=== PATIENT | female | born 1990 | race Caucasian/White ===

== ENCOUNTER 2020-03-27 14:43 | Inpatient (IN) ==
[2020-03-27] MEDS ORDERED: OXYTOCIN 30 UNITS/500 ML BAG IV PRN ×2 (14:59→20:09)
--- NOTE | 2020-03-27 15:05 | History & Physical Report ---
Date of Service March 27, 2020 Assessment & Plan (1) Uterine contractions at greater than 20 weeks of gestation: 30 yo at 40 wks, ctxs since strip of membranes this morning with cervical change VSS Afebrile Desires epidural FHR reassuring GBS negative Plan to admit, monitor, epidural then AROM and anticipate History of Present Illness Primary Care Provider: NO PCP Patient is a 30 yo at 40 wks who was in office this morning and her cervix wa 4 cm and swiped membranes She has been feeling ctxs q 3-4 min for the last 4 hours No LOF Light VB since VE +FM's Her has been uncomplicated GBS negative Allergies Allergy/AdvReac Type Severity Reaction Status Date / Time No Known Drug Allergies Allergy Verified 06/13/19 08:39 Home Medications Home Medications Medication Instructions Recorded Confirmed Type clonazepam 2 mg tablet PO tab 06/13/19 06/13/19 History naproxen sodium 550 mg tablet PO .TAKE 1 TABLET BY MURIEL #30 tab 06/13/19 06/13/19 History zolpidem 5 mg tablet PO tab 06/13/19 06/13/19 History Patient History Medical History ASCUS with positive high risk HPV 05/06/14 History of acne vulgaris History of Clostridium difficile colitis History of viral warts Surgical History Hx of colonoscopy Family History Father Hypertension Social History Preferred Language: Hungarian Beliefs That Will Affect Care: None marital status: Current Living Situation: Spouse and Family Current Living Situation Comment: two children Smoking Status: Never smoker Hx Alcohol Use: No Hx Substance Use: No OB History 2 FT LOCAL [employer] History No h/o STD's, no h/o HSV Review of Systems All systems reviewed & are unremarkable except as noted in HPI & below Physical Exam Constitutional: WD/WN, vitals as above well developed and well nourished Gastrointestinal (Abdomen): normal bowel sounds, soft, nontender, no hepatosplenomegaly (GRAVID) Genitourinary: normal external appearance OB Exam Abdomen: + vertex Manual OB Exam: + cervical dilation 5 cm, + cervical effacement 70% and + station -2 OB Exam Monitor Tracing: + external uterine monitor used, + category I and + normal FHT variability Results & Data Vital Signs (Past 12 Hours) Vital Signs Pulse BP 03/27/20 14:54 78 119/70
[2020-03-27 15:28] LABS: Hematocrit (blood only) 34.5 % (37-47); Hemoglobin 12.3 g/dL (12.0-16.0); Mean Corpuscular Hemoglobin 32.2 pg (25-34); Mean Corpuscular Volume 90.3 fL (80-100); Mean Platelet Volume 10.6 fL (7.4-10.4); Platelet Count 186 K/uL (130-400); RDW Coefficient of Variation 11.8 % (11.5-14.5); RDW Standard Deviation 38.5 fL (36.4-46.3); Red Blood Count 3.82 M/uL (4.2-5.4); White Blood Count 13.13 K/uL (4.8-10.8)
[2020-03-27 15:38] LABS: Mean Corpuscular Hgb Conc 35.7 g/dL (32-36)
[2020-03-27] MEDS: LACTATED RINGER'S 1,000 ML IV PRN ×2 (15:45→18:32)
[2020-03-27] MEDS ORDERED: ePHEDrine sulfate 50 MG/ML AMP ONE (16:13)
[2020-03-27] MEDS ORDERED: fentaNYL citrate 100 MCG/2 ML VIAL ONE (16:13)
[2020-03-27] MEDS ORDERED: BUPIVACAINE 0.25% 30 ML VIAL ONE (16:13)
[2020-03-27] MEDS ORDERED: fentaNYL 2MCG/ML ROPIV 1.25MG/ML 100 ML BAG EPI ONE (16:14)
[2020-03-27] MEDS ORDERED: ONDANSETRON INJ 2 MG/ML 2 ML VIAL IV PRN (16:52)
[2020-03-27] MEDS ORDERED: NALOXONE HCL 1 MG in SODIUM CHLORIDE 0.9% 1000ML 1,000 ML IV PRN (16:52)
[2020-03-27] MEDS ORDERED: ATROPINE SULFATE 0.1 MG/ML 10ML SYR IV PRN (16:52)
[2020-03-27] MEDS ORDERED: fentaNYL 2MCG/ML ROPIV 1.25MG/ML 100 ML BAG EPI PRN (16:52)
[2020-03-27] MEDS ORDERED: DiphenhydrAMINE HCL 50 MG/ML VIAL IV PRN (16:52)
[2020-03-27] MEDS ORDERED: NALOXONE HCL 0.4 MG/1 ML VIAL/CARP IV PRN (16:52)
[2020-03-27] MEDS ORDERED: ePHEDrine sulfate 50 MG/ML AMP IV PRN ×2 (16:52)
--- NOTE | 2020-03-27 16:54 | Anesthesiology Consultation ---
Date of Service March 27, 2020 Covid 19 negative on 03/19/20 Assessment & Plan Chart Review Chart Review: Patient NOT seen in Pre Admission Testing and Acceptable Risk for Labor Epidural Consults Requested none ASA ASA2 Proposed Anesthesia Anesthesia Type: Labor Epidural and CSE Risk / Benefits Reviewed With: PT / POA / Parent / Guardian, Accepts Plan and Informed Consent Obtained History Height/Weight Height: 5 ft 4 in Weight: 72.121 kg Allergies Allergy/AdvReac Type Severity Reaction Status Date / Time No Known Drug Allergies Allergy Verified 06/13/19 08:39 Medications Home Medications Medication Instructions Recorded Confirmed Last Taken vit-iron fum-folic ac 1 tab PO DAILY 03/27/20 03/27/20 Unknown [ Vitamin] Active Medications Generic Name Dose Route Start Last Admin Trade Name Freq PRN Reason Stop Dose Admin Lactated Ringer's 1,000 mls @ 150 mls/hr 03/27/20 14:59 03/27/20 16:34 Lr IV 03/29/20 14:58 150 mls/hr .[id number] PRN Infusion L&D Protocol Protocol NPO Date Last Intake of Fluids: 03/27/20 Time Last Intake of Fluids: 15:00 Date Last Intake of Solids: 03/27/20 Time Last Intake of Solids: 09:30 Past Medical History Medical History ASCUS with positive high risk HPV 05/06/14 History of acne vulgaris History of Clostridium difficile colitis History of viral warts Exercise / Class Metabolic Activity II 4-5 Yardwork/Stairs/Walk up hill Past Family History Family History Father Hypertension Past Surgical History Surgical History Hx of colonoscopy Past Anesthesia History No Hx of Anesthesia Complications and No Family Hx of Anesthesia Complications History of PONV No Hx of PONV and No Hx of Motion Sickness Social History Smoking Status: Never smoker Hx Alcohol Use: No Hx Substance Use: No substance use type: does not use Review of Systems no chest pain or sob Physical Exam Vital Signs Last Vital Signs Temp 37.3 C 03/27/20 14:57 Pulse 69 03/27/20 16:51 Resp 20 03/27/20 14:57 BP 119/70 03/27/20 14:57 Pulse Ox 98 03/27/20 16:51 ENMT Mouth: no TMJ abnormality Thyromental Distance: > or= 3.5 Finger Breadths Mallampati Class: II Neck normal visual inspection Respiratory normal respiratory effort Auscultation: lungs clear to auscultation bilaterally Cardiovascular Rate/Rhythm: regular rate and regular rhythm Musculoskeletal Spine: normal cervical ROM Neurologic moves all extremities Psychiatric Orientation: alert and oriented x 3 Testing Laboratory Results 03/27/20 15:19
--- NOTE | 2020-03-27 17:46 | Obstetrical Progress Note ---
Date of Service March 27, 2020 Assessment & Plan Admission and Anticipated Discharge Date Admission Date: March 27, 2020 Subjective Patient is reevaluated She is comfortable, received epidural for pain VE; 5-6 cm/ 70%/ -1, AROM'ed clear fluid FHR categ I Continue to monitor Anticipate Results & Data ([facility]) Vital Signs (Past 12 Hours) Vital Signs Temp Pulse Resp BP Pulse Ox 03/27/20 17:43 59 L 100 03/27/20 17:38 59 L 100 03/27/20 17:33 64 99 03/27/20 17:28 65 99 03/27/20 17:27 55 L 101/58 L 03/27/20 17:24 74 96/55 L 03/27/20 17:23 72 98 03/27/20 17:18 63 100 03/27/20 17:17 76 105/58 L 03/27/20 17:13 70 100 03/27/20 17:11 74 102/57 L 03/27/20 17:09 68 101/60 03/27/20 17:08 70 105/64 100 03/27/20 17:03 72 100 03/27/20 16:58 76 100 03/27/20 16:51 69 98 03/27/20 16:46 70 98 03/27/20 16:41 71 98 03/27/20 16:36 71 98 03/27/20 16:31 65 99 03/27/20 14:57 37.3 C 78 20 119/70 03/27/20 14:54 78 119/70
[2020-03-27] MEDS ORDERED: DIPHTHERIA/TETANUS/PERTUSSIS 0.5 ML SYR/VIAL IM ONE (20:09)
[2020-03-27] MEDS ORDERED: bisacodyL 10 MG SUPP PR PRN (20:09)
[2020-03-27] MEDS ORDERED: SUPERCREAM 0.870% 15 GM JAR EXT PRN (20:09)
[2020-03-27] MEDS ORDERED: MEASLES, MUMPS & RUBELLA VIRUS VIAL SQ ONE (20:09)
[2020-03-27] MEDS ORDERED: miSOPROStoL 200 MCG TAB PR ONE (20:09)
[2020-03-27] MEDS ORDERED: BENZOCAINE 20% AER SPR 82.5 GM CAN EXT PRN (20:09)
[2020-03-27] MEDS ORDERED: HYDROCORTISONE ACETATE 25 MG SUPP PR PRN (20:09)
--- NOTE | 2020-03-27 20:53 | Anesthesiology Progress Note ---
Date of Service March 27, 2020 Anesthesia Post Procedure Vital Signs Vital Signs: Temp Pulse Resp BP Pulse Ox 03/27/20 20:47 77 100/65 03/27/20 20:32 66 102/62 03/27/20 20:17 71 103/64 03/27/20 20:03 73 110/57 L 03/27/20 19:58 71 99 03/27/20 19:53 74 99 03/27/20 19:48 86 100 03/27/20 19:45 103 H 87 L 03/27/20 19:43 99 H 100 03/27/20 19:38 96 H 100 03/27/20 19:34 74 90 03/27/20 19:33 76 134/64 100 03/27/20 19:28 73 100 03/27/20 19:27 75 89 L 03/27/20 19:23 72 100 03/27/20 19:18 81 100 03/27/20 19:16 89 91 03/27/20 19:13 84 99 03/27/20 19:08 78 100 03/27/20 19:03 71 112/63 100 03/27/20 18:58 69 100 03/27/20 18:53 64 99 03/27/20 18:48 58 L 98 03/27/20 18:47 55 L 95/53 L 03/27/20 18:43 68 99 03/27/20 18:38 69 100 03/27/20 18:33 65 99 03/27/20 18:32 61 16 103/62 03/27/20 18:28 78 100 03/27/20 18:23 76 99 03/27/20 18:18 63 98 03/27/20 18:17 76 100/63 03/27/20 18:13 83 100 03/27/20 18:08 65 99 03/27/20 18:04 57 L 110/64 03/27/20 18:03 64 99 03/27/20 17:58 70 98 03/27/20 17:53 64 99 03/27/20 17:48 60 108/65 99 03/27/20 17:43 59 L 100 03/27/20 17:38 59 L 100 03/27/20 17:33 64 99 03/27/20 17:28 65 99 03/27/20 17:27 55 L 101/58 L 03/27/20 17:24 74 96/55 L 03/27/20 17:23 72 98 03/27/20 17:18 63 100 03/27/20 17:17 76 105/58 L 03/27/20 17:13 70 100 03/27/20 17:11 74 102/57 L 03/27/20 17:09 68 101/60 03/27/20 17:08 70 105/64 100 03/27/20 17:03 72 100 03/27/20 16:58 76 100 03/27/20 16:51 69 98 03/27/20 16:46 70 98 03/27/20 16:41 71 98 03/27/20 16:36 71 98 03/27/20 16:31 65 99 03/27/20 14:57 37.3 C 78 20 119/70 03/27/20 14:54 78 119/70 Pain Intensity Right Lower Abdomen: Pain Intensity: 2 Transfer of Care Handoff Completed per policy Notes Mental Status: alert / awake / arousable Patient Amnestic to Procedure: Yes Nausea / Vomiting: adequately controlled Pain: adequately controlled Airway Patency, RR, SpO2: stable & adequate BP & HR: stable & adequate Hydration State: stable & adequate Anesthetic Complications: no major complications apparent and Pt Satisfied with anesthetic care
--- NOTE | 2020-03-27 20:54 | Anesthesia Procedure Note ---
Date of Service March 27, 2020 Anesthesia Post Epidural Note Vital Signs Vital Signs: Temp Pulse Resp BP Pulse Ox 37.3 C 77 16 100/65 99 03/27/20 14:57 03/27/20 20:47 03/27/20 18:32 03/27/20 20:47 03/27/20 19:58 Pain Intensity Right Lower Abdomen: Pain Intensity: 2 Notes Mental Status: alert / awake / arousable and participated in evaluation Nausea / Vomiting: adequately controlled Pain: adequately controlled Airway Patency, RR, SpO2: stable & adequate BP & HR: stable & adequate Hydration State: stable & adequate Neuraxial Anesthesia: was administered and sensory block is resolving Anesthetic Complications: no major complications apparent and Pt Satisfied with anesthetic care Epidural: Removed without complications and With tip intact
--- NOTE | 2020-03-27 21:25 | Delivery Summary ---
DATE OF OPERATION: 03/27/2020 TIME OF DELIVERY OF BABY: 1946 p.m. DETAILS OF DELIVERY: The patient was found to be fully dilated and desired to push. She pushed for about 25 minutes and delivered the head without difficulty in occiput posterior position. Baby's face is up towards anterior. The shoulders were delivered with minimal traction. Baby was handed to the mother where mouth and nose were suctioned. Cord was clamped x2 and cut at 1 minute delay. Cord blood was obtained. Vagina and perineum were checked for lacerations. There was a very small first-degree labial laceration on the superior fusion of labia anteriorly as well as posteriorly on the posterior fourchette around the hymen at 5 o'clock position. Both were repaired with 3-0 Vicryl in a running fashion. Excellent hemostasis was achieved. Rest of the vagina and perineum were intact. Placenta was found to be in the vagina, delivered spontaneous as intact and complete. Uterus was explored, found to be empty. Lower segment was cleared of all clots and debris. The patient passed a cloth and IV Pitocin was started. Rectal Cytotec was placed. Uterus became firm quickly and bleeding was minimal after those. EBL was 300 mL. Mom and baby tolerated the procedure well. Sponge, lap, needle count was correct x2. Baby was a viable male infant, Apgars 8/9, weight is 3921 gr. No complications happened and I was present during whole procedure. I attest to the content of the Intraoperative Record and any orders documented therein. Any exceptions are noted below. MTDD
[2020-03-27] MEDS: IBUPROFEN 600 MG TAB PO PRN (22:18)
[2020-03-27] MEDS: DOCUSATE SODIUM 100 MG CAP PO SCH (22:18)
[2020-03-27] MEDS: ACETAMINOPHEN 325 MG TAB PO PRN (23:10)
[2020-03-28] MEDS: IBUPROFEN 600 MG TAB PO PRN ×5 (03:47→21:02)
[2020-03-28] MEDS: ACETAMINOPHEN 325 MG TAB PO PRN ×3 (06:00→18:24)
[2020-03-28] MEDS: FERROUS SULFATE 325 MG TAB PO SCH (08:37)
[2020-03-28] MEDS: PRENATAL VITAMIN 1 TAB PO SCH (08:37)
[2020-03-28] MEDS: DOCUSATE SODIUM 100 MG CAP PO SCH ×2 (08:37→20:56)
--- NOTE | 2020-03-28 10:13 | Obstetrical Progress Note ---
Date of Service March 28, 2020 Assessment & Plan Admission and Anticipated Discharge Date Admission Date: March 27, 2020 Physical Exam Physical Exam: abdomen soft and non tender no calf tenderness ambulating well vaginal bleeding scant hgb 12.3 Results & Data ([facility]) Vital Signs (Past 12 Hours) Vital Signs Temp Pulse Pulse Resp BP BP 03/28/20 07:35 36.7 C 65 18 105/71 03/28/20 03:40 36.6 C 53 L 16 103/68 03/27/20 23:20 37 C 60 18 111/59 L 03/27/20 22:24 60 111/58 L 03/27/20 22:17 76 112/56 L
[2020-03-28 10:27] LABS: Hematocrit (blood only) 31.5 % (37-47); Hemoglobin 11.1 g/dL (12.0-16.0); Mean Corpuscular Hemoglobin 32.5 pg (25-34); Mean Corpuscular Hgb Conc 35.2 g/dL (32-36); Mean Corpuscular Volume 92.1 fL (80-100); Mean Platelet Volume 10.6 fL (7.4-10.4); Platelet Count 166 K/uL (130-400); RDW Coefficient of Variation 12.1 % (11.5-14.5); RDW Standard Deviation 40.3 fL (36.4-46.3); Red Blood Count 3.42 M/uL (4.2-5.4); White Blood Count 10.01 K/uL (4.8-10.8)
[2020-03-28] MEDS ORDERED: bisacodyL 5 MG TABEC PO SCH (20:00)
[2020-03-29] MEDS: ACETAMINOPHEN 325 MG TAB PO PRN ×2 (01:01→09:37)
[2020-03-29] MEDS: IBUPROFEN 600 MG TAB PO PRN (05:40)
[2020-03-29 06:08] LABS: Hematocrit (blood only) 31.6 % (37-47); Hemoglobin 11.3 g/dL (12.0-16.0)
[2020-03-29] MEDS: FERROUS SULFATE 325 MG TAB PO SCH (09:36)
[2020-03-29] MEDS: DOCUSATE SODIUM 100 MG CAP PO SCH (09:36)
[2020-03-29] MEDS: PRENATAL VITAMIN 1 TAB PO SCH (09:36)
--- NOTE | 2020-03-29 10:27 | Obstetrical Progress Note ---
Date of Service March 29, 2020 Assessment & Plan Admission and Anticipated Discharge Date Admission Date: March 27, 2020 Physical Exam Physical Exam: abdomen soft and non tender vaginal bleeding scant hgb 11.3 no calf tenderness ambulating well Results & Data ([facility]) Vital Signs (Past 12 Hours) Vital Signs Temp Pulse Resp BP Pulse Ox 03/29/20 07:15 36.5 C 57 L 16 101/58 L 03/28/20 23:15 36.4 C L 61 16 100/61 97
== END 2020-03-29 12:09 | disposition home or self-care (01) | DRG 807 ==
LOC: OPB 14:43 → 4S1 14:44 → 4S2 23:13

== ENCOUNTER 2022-10-09 00:21 | Inpatient (IN) ==
[2022-10-09] MEDS ORDERED: LACTATED RINGER'S 1,000 ML IV PRN (02:44)
[2022-10-09] MEDS ORDERED: LIDOCAINE 1% LOCAL 20 ML VIAL INFIL PRN (02:44)
--- NOTE | 2022-10-09 03:13 | History & Physical Report ---
Date of Service October 09, 2022 Assessment & Plan (1) Term : Plan: Admit in labor plan for delivery unmedicated Admission and Anticipated Discharge Date Admission Date: October 09, 2022 History of Present Illness Chief Complaint: contractions Primary Care Provider: Brian Hutchinson 32 F [id number] admitted in early labor and wants to ambulate untill contractions get stronger. GBS is negative. Allergies Allergy/AdvReac Type Severity Reaction Status Date / Time No Known Allergies Allergy Verified 10/09/22 00:41 Home Medications Medication Instructions Recorded Confirmed Type prenat.vits,marva,[id number] 1 tab PO HS 09/22/20 10/09/22 History Patient History Medical History ASCUS with positive high risk HPV 05/06/14 History of acne vulgaris History of Clostridium difficile colitis History of viral warts depression pt states with last baby in 2019 and was on Zoloft and something else for a short time Spontaneous vaginal delivery 11/06/15 [facility] 06/01/17 [facility] 03/27/20 [facility] Surgical History Hx of colonoscopy Family History Father Hypertension Social History Smoking Status: Never smoker Hx Alcohol Use: No Hx Substance Use: No Preferred Language: Malay Communication Ability: Effective Credit Department Manager Required: No Beliefs That Will Affect Care: None marital status: Current Living Situation: Spouse Current Living Situation Comment: House with and children Other Information That Helps Us Care for You: No Feels Safe at Home: Yes Safety Concerns: Feels Safe At This Time Assistive Devices: None 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 Review of Systems All systems reviewed & are unremarkable except as noted in HPI & below Physical Exam Constitutional: WD/WN, vitals as above Eyes: PERRL, conjunctivae normal, anicteric sclerae Respiratory: normal respiratory effort, lungs clear to auscultation Gastrointestinal (Abdomen): Inspection/Auscultation: abdomen normal to inspection Musculoskeletal: Extremities: extremities normal to inspection Skin: no rashes, warm and dry Neurologic: patellar DTR's 2+ bilat, sensation intact Psychiatric: A+Ox3, euthymic affect Genitourinary: no vaginal lesions, no adnexal mass normal external appearance OB Exam Abdomen: + fundal height and + vertex Manual OB Exam: + cervical dilation 5 cm and 6 cm, + cervical effacement 60%, + station -2 and + amniotic fluid clear OB Exam Monitor Tracing: + external FHT monitor used, + external uterine monitor used, + category I and + normal FHT variability AROM with Amni-hook clear fluid Results & Data ([facility]) Vital Signs (Past 12 Hours) Vital Signs Temp Pulse Resp BP O2 Del Method 10/09/22 00:45 36.7 C 18 Room Air 10/09/22 00:36 36.7 C 63 18 113/70 Laboratory Results Laboratory Results - last 24 hr 10/09/22 Unknown SARS-CoV-2, RNA, NAAT Pending Monitoring External Monitor Cat 1
[2022-10-09 03:16] LABS: Hematocrit (blood only) 33.6 % (37.0-47.0); Hemoglobin 12.1 g/dl (12.0-16.0); Mean Corpuscular Hemoglobin 32.5 pg (25.0-34.0); Mean Corpuscular Volume 90.3 fL (80.0-100.0); Mean Platelet Volume 11.1 fL (9.4-12.4); Platelet Count 196 K/uL (130-400); RDW Coefficient of Variation 11.3 % (11.5-14.5); Red Blood Count 3.72 M/uL (4.20-5.40)
[2022-10-09] MEDS: OXYTOCIN 30 UNITS/500 ML BAG IV PRN ×2 (04:55→05:52)
[2022-10-09] MEDS ORDERED: HYDROCORTISONE ACETATE 25 MG SUPP PR PRN (05:07)
[2022-10-09] MEDS ORDERED: OXYTOCIN 30 UNITS/500 ML BAG IV PRN (05:07)
[2022-10-09] MEDS ORDERED: BENZOCAINE 20% AER SPR 82.5 GM CAN EXT PRN (05:07)
[2022-10-09] MEDS ORDERED: DIPHTHERIA/TETANUS/PERTUSSIS 0.5mL SYR/VIAL (Age 7+yrs) IM ONE (05:07)
[2022-10-09] MEDS ORDERED: ACETAMINOPHEN 325 MG TAB PO PRN (05:07)
--- NOTE | 2022-10-09 05:09 | Delivery Summary ---
Vaginal Delivery Summary Date of Service October 09, 2022 Vaginal Delivery Summary Delivery Note live female STACI over intact perineum with delayed cord clamping and Apgars 8/9 weight pending. Cord blood obtained followed by spontaneous delivery of intact placenta. No tears. EBL 100 ml. Final sponge and instrument count are correct. Mom and baby stable.
[2022-10-09] MEDS: IBUPROFEN 600 MG TAB PO PRN ×4 (05:34→22:06)
[2022-10-09] MEDS ORDERED: DOCUSATE SODIUM 100 MG CAP PO SCH (08:00)
[2022-10-09] MEDS ORDERED: FERROUS SULFATE 325 MG TAB PO SCH (08:00)
[2022-10-09] MEDS ORDERED: PRENATAL VITAMIN 1 TAB PO SCH (08:00)
--- NOTE | 2022-10-09 20:14 | Obstetrical Progress Note ---
Date of Service October 09, 2022 Assessment & Plan (1) Term : Plan discharge Subjective Ambulation: ambulating normally Voiding: no voiding problems Passing Gas:: Yes Diet Tolerance:: regular diet Feeding Type:: breast feeding Current Pain Level(1-10): 0 Doing well. baby being transferred to [facility]. Mom wants to be discharged. Physical Exam Constitutional WD/WN, vitals as above Results & Data ([facility]) Vital Signs (Past 12 Hours) Vital Signs Temp Pulse Resp BP 10/09/22 15:29 36.8 C 63 20 105/72 10/09/22 12:29 37.5 C 69 20 106/59 L
[2022-10-09] MEDS ORDERED: NON-FORMULARY MEDICATION (Prenat.Vits,Cal,Min-Iron-Folic Tablet) PO SCH (21:00)
[2022-10-10] MEDS ORDERED: bisacodyL 5 MG TABEC PO SCH (20:00)
[2022-10-11] MEDS ORDERED: bisacodyL 10 MG SUPP PR PRN
== END 2022-10-09 23:43 | disposition home or self-care (01) | DRG 807 ==
LOC: OPB 00:21 → 4S1 00:25 → 4E2 08:19